=== PATIENT | female | born 1965 ===

== ENCOUNTER 2018-09-28 20:45 | Emergency (ER) | payer SELFPAY ==
[~2018-09-28] VITALS: Ht 154.9 cm; Wt 50.0 kg
[2018-09-28 21:07] VITALS: Ht 154.9 cm; Wt 50.0 kg
[2018-09-28] MEDS ORDERED: CYMBALTA60 MG PO (21:09)
[2018-09-28] MEDS ORDERED: TOPAMAX15 MG PO (21:09)
[2018-09-28 21:36] LABS: BASOPHILS 0.1 % (0-2); EOSINOPHILS 0 % (0-7); HEMATOCRIT 39.9 % (36.0-48.0); IMMATURE GRANULOCYTES 0.2 % (0-5); LYMPHOCYTES 7.4 % (15-50); MCH 31.5 pg (26.0-34.0); MCHC 35.1 g/dL (31.0-37.0); MCV 89.9 fL (80.0-100.0); MEAN PLATELET VOLUME 8.7 fL (7.4-10.4); MONOCYTES 7.8 % (2-11); NEUTROPHILS 84.5 % (40-80); PLATELET COUNT 223 10x3/uL (130-400); RBC 4.44 10x6/uL (4.00-5.40); RDW 12.6 % (11.5-14.5); WBC 10.5 10x3/uL (4.8-10.8)
[2018-09-28 22:01] LABS: APPEARANCE HAZY (CLEAR); BILIRUBIN NEGATIVE (NEGATIVE); COLOR DK YELLOW (YELLOW); GLUCOSE NEGATIVE (NEGATIVE); KETONE NEGATIVE (NEGATIVE); NITRITE NEGATIVE (NEGATIVE); PROTEIN TRACE mg/dL (NEGATIVE); SPECIFIC GRAVITY 1.015 (1.005-1.020); UROBILINOGEN NORMAL (NORMAL)
[2018-09-28 22:02] LABS: BACTERIA MODERATE /hpf (NONE SEEN); EPITHELIAL CELLS 0-5 /hpf (0-5); RED CELLS - URINE 25-50 /hpf (0-5); WHITE CELLS - URINE 0-5 /hpf (0-5)
[2018-09-28 22:10] LABS: ALBUMIN 4.5 g/dL (3.4-5.0); BILIRUBIN - TOTAL 0.51 mg/dL (0.2-1.3); CALCIUM 9.5 mg/dL (8.5-10.1); CARBON DIOXIDE 21.7 mmol/L (21.0-32.0); CREATININE - SERUM 1.3 mg/dL (0.6-1.3); POTASSIUM - SERUM 3.7 mmol/L (3.5-5.1); PROTEIN - SERUM 8.3 g/dL (6.4-8.2)
[2018-09-28] MEDS ORDERED: FLOMAX0.4 MG PO (23:19)
[2018-09-28] MEDS ORDERED: HYDROCODON-ACE1 EAC7 PO (23:19)
[2018-09-28 23:35] VITALS: BP 106/66
== END 2018-09-28 23:35 | disposition home or self-care (01) ==
LOC: D.ER 20:45
PROVIDERS: Family Medicine
DX: N20.1 Calculus of ureter (principal); N20.0 Calculus of kidney